=== PATIENT | female | born 1950 | race Caucasian/White ===

== ENCOUNTER 2020-09-20 07:45 | Inpatient (IN) | payer OTHER ==
[~2020-09-20] VITALS: Ht 170.2 cm; Wt 83.0 kg
[~2020-09-20 07:45] MED LIST: DUI500 PO; LISINOPRIL10 MG PO; PERCOCET 5-3251 EACH PO; XARELTO10 MG PO
[2020-09-26] MEDS ORDERED: LISINOPRIL40 MG (11:53)
[2020-09-28] MEDS ORDERED: PERCOCET 5-3251 EACH PO (13:06)
[2020-09-28] MEDS ORDERED: DUI500 PO (13:06)
[2020-09-28] MEDS ORDERED: ELIQUIS2.5 MG PO (13:06)
== END 2020-09-28 17:40 | DRG 470 ==
LOC: O/R 09-26 05:42 → SURH 09-26 07:45
PROVIDERS: ADMIT Orthopaedic Surgery; ATTEND Orthopaedic Surgery
PROC: 0SR90JZ Replacement of Right Hip Joint with Synthetic Substitute, Open Approach (ICD-10-PCS; principal; 2020-09-26 16:15)
DX: M16.11 Unilateral primary osteoarthritis, right hip (principal); D62 Acute posthemorrhagic anemia; I10 Essential (primary) hypertension